=== PATIENT | female | born 1965 | race Caucasian/White ===

== ENCOUNTER → 2021-06-23 12:43 | Outpatient (BNVA) | payer MEDICARE, SELFPAY | PROVIDERS: Family Provider Family Medicine; PCP Family Medicine; Visit Provider Emergency Medicine | DX: M25.532 Pain in left wrist (principal); M25.562 Pain in left knee; W19.XXXA Unspecified fall, initial encounter; M79.642 Pain in left hand; M25.572 Pain in left ankle and joints of left foot; M19.042 Primary osteoarthritis, left hand | CPT/HCPCS: 73110; 73130; 73562; 73610 ==

== ENCOUNTER → 2022-02-18 12:41 | Outpatient (BNVA) | payer MEDICARE, SELFPAY | PROVIDERS: Family Provider Family Medicine; Visit Provider Nurse Practitioner Family | DX: M17.11 Unilateral primary osteoarthritis, right knee (principal); M25.561 Pain in right knee | CPT/HCPCS: 73562 ==

== ENCOUNTER 2022-04-24 11:42 | Emergency (ER) | payer MEDICARE, SELFPAY ==
[2022-04-24] VITALS (80 sets, daily range): BP systolic 124–167; BP diastolic 72–97; PULSE 70–110; RESP 7–39; TEMP 36.8; O2SAT 85–100; BMI 33.6
--- NOTE | 2022-04-24 11:44 | XRR_ITS ---
PROCEDURE INFORMATION: Exam: XR Chest Exam date and time: 04/24/2022 12:02 PM Age: 56 years old Clinical indication: Pain; Chest pressure; Additional info: Chest pain TECHNIQUE: Imaging protocol: Radiologic exam of the chest. Views: 1 view. COMPARISON: CR XR chest 1V [id number] 05/25/2018 11:09 AM FINDINGS: Lungs: Unremarkable. No consolidation. Pleural spaces: Unremarkable. No pleural effusion. No pneumothorax. Heart/Mediastinum: Unremarkable. No cardiomegaly. Bones/joints: Unremarkable. XR/XR chest 1V portable [id number] IMPRESSION: No acute findings.
--- NOTE | 2022-04-24 12:21 | ED_ITS ---
HPI - General Adult General: Chief complaint: Chest Pain Stated complaint: chest pain Time Seen by Provider: 04/24/22 11:44 History of Present Illness: Patient is a 56-year-old female with a history of diabetes, smoking, prior meth use who presents to the emergency room for complaints of chest pressure, diaphoresis, nausea and vomiting for the last 3 days. Patient has been at she has been having chest pain on and off for the last 2 weeks but the last few days the pain has significantly worse. Patient reports chest pressure lasting for few minutes at a time while at rest. Each episode associate with clamminess and sweating with nausea and vomiting. Patient also reports shortness of breath with each episode of chest pressure. Patient denies any stabbing chest pain with radiation to the back, pleuritic chest pain, recent immobilization, surgery. Patient has any cough, runny nose sore throat, abdominal pain, nausea/vomiting point diarrhea melena/hematochezia. No other focal complaints at this time. Of note, patient has had a stress test 6 years ago with finding of lesions in the disease. Patient has not followed up with cardiology at that time. Earlier today, patient called EMS. Patient received aspirin 325mg, multiple doses of nitro and opiate medication with improvement in chest pain. Onset:acutely 3 days ago Duration:3 days Location:home Severity:moderate Associated symptoms: Reports chest pain (+chest pressure), dyspnea, nausea and vomiting; Deny rash or palpitations Review of Systems Const: Reports: other (+diaphoresis); Denies: fever(s) or chills Eyes: Denies: change in vision ENMT: Denies: mouth pain Card: Reports: chest pain (+chest pressure); Denies: palpitations Resp: Reports: dyspnea; Denies: non-productive cough GI: Reports: nausea and vomiting; Denies: abdominal pain or diarrhea : Denies: dysuria Musc: Denies: extremity pain Skin/Breast: Denies: rash or new lesions Neuro: Denies: weakness in extremities Psych: Reports: other (Normal mood) Alexandre/Lymph: Denies: easy bruising PFSH ED PFSH: Medical History Diabetes Smoking Social History Smoking and tobacco status: current every day smoker Alcohol intake: never Substance/Drug Use: former Physical Exam Const: COMMON NORMALS: alert HENMT: COMMON NORMALS: atraumatic HEAD & SCALP: atraumatic MOUTH: moist mucous membranes not abnormal Eye: COMMON NORMALS: EOMs intact bilaterally and conjunctivae normal CONJUNCTIVA: Yes conjunctivae normal Neck/C-Spine: COMMON NORMALS: full ROM and supple Resp: COMMON NORMALS: normal respiratory effort and clear to auscultation bilaterally AUSCULTATION: clear to auscultation bilaterally Cardio: COMMON NORMALS: regular rate RATE: regular rate OTHER: 2+ radial pulses b/l GI: COMMON NORMALS: Soft to palpation and non-tender PALPATION: Yes Soft to palpation OTHER: No focal TTP. NO guarding rebound, guarding, rigidity. No CVA tenderness to percussion. Neg Moore/Neg McBurney's point tenderness, no suprabupic tenderness to palpation. Extremity: COMMON NORMALS: full ROM Neuro: SENSORIUM/ORIENTATION: Yes alert MOTOR EXAM: No Abnormal motor strength present and Other motor observations present (no focal motor deficits) Psych: COMMON NORMALS: speech normal SPEECH: Yes normal speech MOOD & AFFECT: Yes euthymic mood Course Vital Signs: Vital signs: Vital Signs Temperature 98.2 F 04/24/22 11:43 Pulse Rate 98 04/24/22 18:14 Respiratory Rate 20 H 04/24/22 18:14 Blood Pressure 124/79 04/24/22 18:14 Pulse Oximetry 96 04/24/22 18:14 [facility] - General Adult Medical Decision Making Patient is a 56-year-old female with a history of diabetes, smoking, prior meth use who presents to the emergency room for complaints of chest pressure, diaphoresis nausea and vomiting for the last 3 days. On exam, patient is hemodynamically stable with 2+ radial pulses bilaterally. Rest of exam unremarkable. Initial EKG not showing signs of ST elevation. No signs of is chemia. Troponin x 1 wnl. Patient is currently chest pain free. Disposition: observation Lab Data : 04/24/22 12:10 04/24/22 12:10 Radiology Impressions Chest X-Ray 04/24/22 11:44 IMPRESSION: No acute findings. Laboratory Results WBC 4.5 10^3/uL (4.0-10.0) 04/24/22 12:10 RBC 4.47 10^6/uL (4.1-5.3) 04/24/22 12:10 Hgb 13.4 g/dL (11.5-15.3) 04/24/22 12:10 Hct 38.7 % (37.0-47.0) 04/24/22 12:10 MCV 86.6 fl (81-99) 04/24/22 12:10 MCH 30.0 pg (28.0-34.0) 04/24/22 12:10 MCHC 34.6 g/dL (30.0-36.0) 04/24/22 12:10 RDW 14.3 % (12.1-15.1) 04/24/22 12:10 Plt Count 139 10^3/cmm (130-400) 04/24/22 12:10 MPV 10.2 fL (7.4-10.4) 04/24/22 12:10 Neut % (Auto) 61.7 % 04/24/22 12:10 Lymph % (Auto) 32.4 % 04/24/22 12:10 [place] % (Auto) 4.4 % 04/24/22 12:10 Eos % (Auto) 0.7 % 04/24/22 12:10 Baso % (Auto) 0.4 % 04/24/22 12:10 Neut # (Auto) 2.78 10^3/uL (1.8-7.7) 04/24/22 12:10 Lymph # (Auto) 1.5 10^3/uL (0.8-4.8) 04/24/22 12:10 [place] # (Auto) 0.2 10^3/uL (0.2-0.9) 04/24/22 12:10 Eos # (Auto) 0.0 10^3/uL (0.0-0.8) 04/24/22 12:10 Baso # (Auto) 0.0 10^3/uL (0.0-0.1) 04/24/22 12:10 Nucleated RBC % (auto) 0 % 04/24/22 12:10 Nucleated RBCs # 0.0 /100WBC 04/24/22 12:10 Sodium 129 mmol/L (136-145) L 04/24/22 12:10 Potassium 4.0 mmol/L (3.5-5.1) 04/24/22 12:10 Chloride 95 mmol/L (98-107) L 04/24/22 12:10 Carbon Dioxide 27 mmol/L (22-29) 04/24/22 12:10 Anion Gap 11.0 (5-19) 04/24/22 12:10 BUN 12 mg/dL (6-20) 04/24/22 12:10 Creatinine 0.4 mg/dL (0.5-0.9) L 04/24/22 12:10 GFR Calculation 163.9 mL/min (90-130) H 04/24/22 12:10 Glucose 366 mg/dL (65-115) H 04/24/22 12:10 Estimat Average Glucose 223 04/24/22 12:10 Hemoglobin A1c 9.4 % (4.0-6.0) H 04/24/22 12:10 Calculated Osmolality 283 mOsm/kg (285-295) L 04/24/22 12:10 Calcium 9.0 mg/dL (8.5-10.5) 04/24/22 12:10 Troponin T Baseline 8 ng/L (0-10) 04/24/22 12:10 Troponin T 120 Minute 7.67 ng/L (0-10) 04/24/22 15:37 Delta Troponin T -0.33 ABS# (0-10) L 04/24/22 15:37 NT-Pro-B Natriuret Pep 27 pg/mL (0-125) 04/24/22 12:10 Triglycerides 195 mg/dL (0-150) H 04/24/22 12:10 Cholesterol 174 mg/dL (0-200) 04/24/22 12:10 LDL Cholesterol, Calc 98 mg/dL (50-129) 04/24/22 12:10 HDL Cholesterol 37 mg/dL (60-100) L 04/24/22 12:10 LDL/HDL Ratio 2.65 RATIO (0.00-3.22) 04/24/22 12:10 Cholesterol/HDL Ratio 4.70 mg/dL (0.0-4.40) H 04/24/22 12:10 TSH 0.43 uIU/mL (0.27-4.20) 04/24/22 12:10 Urine Opiates Screen Positive ng/mL (Negative) H 04/24/22 17:24 Ur Barbiturates Screen Negative ng/mL (Negative) 04/24/22 17:24 Ur Phencyclidine Scrn Negative ng/mL (Negative) 04/24/22 17:24 Ur Amphetamines Screen Positive ng/mL (Negative) H 04/24/22 17:24 U Benzodiazepines Scrn Negative ng/mL (Negative) 04/24/22 17:24 Urine Cocaine Screen Negative ng/mL (Negative) 04/24/22 17:24 U Marijuana (THC) Screen Negative ng/mL (Negative) 04/24/22 17:24 Imaging Data Other Imaging: Radiologist's impression: [email or web address] [address] XRay Report Signed Patient: Coni Lovett Unit #: [id number] : 1965 Age/Sex: 56 / F ADM Date: 04/24/22 Loc: ER Room/Bed: Attending Dr: Ordering Provider/Ordering MD: Ericka Garza MD Date of Service: 04/24/22 Procedure(s): XR chest 1V portable [id number] Accession Number(s): [id number] Report Number: [id number] PROCEDURE INFORMATION: Exam: XR Chest Exam date and time: 04/24/2022 12:02 PM Age: 56 years old Clinical indication: Pain; Chest pressure; Additional info: Chest pain TECHNIQUE: Imaging protocol: Radiologic exam of the chest. Views: 1 view. COMPARISON: CR XR chest 1V [id number] 05/25/2018 11:09 AM FINDINGS: Lungs: Unremarkable. No consolidation. Pleural spaces: Unremarkable. No pleural effusion. No pneumothorax. Heart/Mediastinum: Unremarkable. No cardiomegaly. Bones/joints: Unremarkable. XR/XR chest 1V portable [id number] IMPRESSION: No acute findings. ? Dictated By: Titus Husain MD Signed By: Titus Husain MD Signed Date/Time: 04/24/22 1331 DD/ 1202 Discharge Plan Discharge Patient Disposition: Left Against Medical Advice Clinical Impression: Chest pain Condition: Stable Prescriptions: No Action duloxetine 30 mg capsule,delayed release(DR/EC) 30 mg PO DAILY pregabalin 75 mg capsule 75 mg PO TID Lantus Solostar U-100 Insulin 100 unit/mL (3 mL) insulin pen 50 unit SUBCUT BEDTIME Trulicity 0.75 mg/0.5 mL Pen Injector 0.75 mg SUBCUT Q7D Referrals: Dayna Sanchez DO [Primary Care Provider] - Coding Level of Care Code ED Mixing Plant Operator for Chg Fwd Exam Comprehensive
[2022-04-24 12:31] LABS: Basophils % 0.4 %; Eosinophils % 0.7 %; Hematocrit 38.7 % (37.0-47.0); Hemoglobin 13.4 g/dL (11.5-15.3); Lymphocytes # 1.5 10^3/uL (0.8-4.8); Lymphocytes % 32.4 %; Mean Corpuscular HGB Conc 34.6 g/dL (30.0-36.0); Mean Corpuscular Volume 86.6 fl (81-99); Mean Platelet Volume 10.2 fL (7.4-10.4); Monocytes # 0.2 10^3/uL (0.2-0.9); Monocytes % 4.4 %; Neutrophils # 2.78 10^3/uL (1.8-7.7); Neutrophils % 61.7 %; Nucleated Red Blood Cells % 0 %; Platelet Count 139 10^3/cmm (130-400); Red Blood Count 4.47 10^6/uL (4.1-5.3); Red Cell Distribution Width 14.3 % (12.1-15.1); White Blood Count 4.5 10^3/uL (4.0-10.0)
--- NOTE | 2022-04-24 12:33 | PC.NURSE ---
offered morphine for pt, pt declined for now.
--- NOTE | 2022-04-24 12:34 | PC.NURSE ---
ASA not given due to pt received 324mg ASA en route by EMS. physician order to not give med.
[2022-04-24 12:56] LABS: Blood Urea Nitrogen 12 mg/dL (6-20); Carbon Dioxide 27 mmol/L (22-29); Chloride 95 mmol/L (98-107); Creatinine Clr Calc Pharmacy 159.5191; Glomerular Filtration Rate 163.9 mL/min (90-130); Glucose 366 mg/dL (65-115); Osmolality Calculated 283 mOsm/kg (285-295); Sodium 129 mmol/L (136-145)
[2022-04-24 12:58] LABS: Troponin(5th) Baseline 8 ng/L (0-10)
[2022-04-24] MEDS: morphine 4 mg/mL SDV 1 mL IVP (13:02)
--- NOTE | 2022-04-24 13:45 | ECG_ITS ---
[facility] Test Date: 2022-04-24 Pat Name: Coni Lovett Department: Room: Gender: Female Field Technical Support Consultant: : 1965 Requested By: Ericka Garza Order Number: [id number] Lisa MD: Lux Boudreaux M.D. Measurements Intervals [place] Rate: 78 P: 29 AL: 137 QRS: 34 QRSD: 85 T: 25 QT: 367 QTc: 419 Interpretive Statements SINUS RHYTHM WITH OCCASIONAL SUPRAVENTRICULAR PREMATURE COMPLEXES Compared to ECG 04/24/2022 11:48:58 No significant changes Electronically Signed On 04-25-2022 22:10:51 CDT by Lux Boudreaux M.D. [email or web address].[employer]/store/OM/[id number]
--- NOTE | 2022-04-24 15:19 | PM.HP ---
Providers/Chief Complaint Primary Care Provider: Dayna Sanchez DO Chief Complaint: chest pain History of Present Illness Coni Lovett is a 56 year old female with past medical history of methamphetamine abuse, positive stress test 5 years ago and subsequent cath with apparently a diseased vessel but not enough to be intervented upon and lost to follow-up, diabetes mellitus complicated by peripheral neuropathy presented to the ER today for complaint of chest pain. She states she has been okay for the last couple of years however presented to the ER with complaints of chest pain for been going on for the last 2 weeks in the last few days has gotten significantly worse. She does report chest pressure lasting for few minutes even at rest. She gets diaphoretic and has nausea vomiting. She says for the last 3 days this has been going on. When she does get chest pressure she gets diaphoretic along with it. She also gets shortness of breath. Pain does not radiate anywhere. It is not reproducible to palpation. Denies runny nose, sore throat, abdominal pain, nausea vomiting diarrhea at this time. She states the stress that she had years ago did have some kind of a lesion and she was asked to follow-up with cardiology but she did not. In route to the ER she was given aspirin 325x1 and 4 doses of nitro and along with morphine that did improve her chest pain. At this time she is complaining of chest pressure. Will be applying nitro paste. EKG does not show any acute ST elevations. No other ischemic changes on EKG. First troponin 8. Sodium 129, chloride 95, creatinine 0.4. Glucose 366. Patient takes 50 units of Lantus at bedtime at home. Medications/Allergies Home Medications Medication Instructions Recorded Confirmed Last Taken Type dulaglutide 0.75 mg/0.5 mL 0.75 mg SUBCUT Q7D 04/24/22 04/24/22 04/17/22 History subcutaneous pen injector (Trulicity) duloxetine 30 mg capsule,delayed 30 mg PO DAILY 04/24/22 04/24/22 04/23/22 History release insulin glargine 100 unit/mL (3 50 unit SUBCUT BEDTIME 04/24/22 04/24/22 04/23/22 History mL) subcutaneous pen (Lantus Solostar U-100 Insulin) pregabalin 75 mg capsule 75 mg PO TID 04/24/22 04/24/2204/23/22 History Allergies Allergy/AdvReac Type Severity Reaction Status Date / Time erythromycin base Allergy unknown Verified 06/23/21 12:33 rosalie Allergy unknown Verified 06/23/21 12:33 papaya Allergy unknown Verified 06/23/21 12:33 watermelon Allergy unknown Verified 06/23/21 12:33 PFSH Acute PFSH: Medical History Diabetes Smoking Social History Smoking and tobacco status: current every day smoker Alcohol intake: never Substance/Drug Use: former Vitals/I&O/Wt Last Vital Signs Temp 98.2 F 04/24/22 11:43 Pulse 74 04/24/22 13:55 Resp 13 04/24/22 13:55 BP 152/84 04/24/22 13:55 Pulse Ox 97 04/24/22 13:55 Weight last 48 hrs Weight 86.183 kg Physical Exam Narrative: General: Alert oriented x3, patient seen sitting up in bed, no acute distress HEENT: Normocephalic, atraumatic, EOMI, breathing normally Cardio: Regular rate rhythm, normal S1-S2, no murmurs Respiratory: Good bilateral air entry, no wheezes no rhonchi appreciated GI: Abdomen soft, nontender, nondistended, bowel sounds + Behavior: Appropriate and cooperative Extremities: Pulses 2+, no edema, no cyanosis Data : 04/24/22 12:10 04/24/22 12:10 A&P Assessment and plan (1) Chest pain: (2) Diabetes: (3) Nicotine dependence: (4) Amphetamine abuse in remission: (5) Nicotine dependence: Plan #Typical Chest pain, rule out ACS #Former Meth user, but no longer #Smoker #Positive stress test 5 years prior with angiogram showing a diseased vessel but not intervened upon. In [place], does not remember name of hospital. #DM complicated by peripheral neuropathy #Hyponatremia - FIrst trop 8. - Start aspirin, plavix, lopressor, atorvastatin - Will trend troponins. Will cover with therapeutic lovenox - Tentitavely plan for Stress test Tuesday AM. If chest pain recurs, may have to consider cardiology consult. - Check echo - Sliding scale insulin, lantus 50 units bedside - Continue duloxetine - COntinue lyrica - Check urine drug screen - CXR unremarkable - Check urine sodium, urine and serum osm - Apply nitro paste - Await 2nd and third trop - Keep patient NPO for now. Full Code DVT PPX: on lovenox Attestations Medical Necessity Statement*: Observation for chest pain. Coding Level of Care Code Acute Vice [employer] Police Officer for Chelseyg Shimond Diagnoses Chest pain R07.9 Diabetes E11.9 Nicotine dependence F17.200 Amphetamine abuse in remission F15.11 Nicotine dependence F17.200
--- NOTE | 2022-04-24 15:34 | USCV_ITS ---
Coni Lovett Age: 56 Gender: F : 1965 Exam Date: 04/24/2022 15:52 Ordering Phys: Mona Welsh MD Technologist: Exam Location: [facility] [place] Indication: chest pain BP: 156 / 88 HR: 83 Rhythm: Sinus Technical Quality: Adequate MEASUREMENTS (Male / Female) Normal Values 2D ECHO LV Diastolic Diameter PLAX 4.2 cm 4.2 - 5.9 / 3.9 - 5.3 cm LV Systolic Diameter PLAX 2.5 cm IVS Diastolic Thickness 1.2 cm 0.6 - 1.0 / 0.6 - 0.9 cm IVS Systolic Thickness 1.9 cm LVPW Diastolic Thickness 1.2 cm 0.6 - 1.0 / 0.6 - 0.9 cm LVPW Systolic Thickness 1.3 cm LVOT Diameter 2.1 cm LV Ejection Fraction 2D Teich 63.2 % LV Ejection Fraction MOD 2C 71.1 % LV Ejection Fraction 2C AL 71.2 % LA Diameter 3.6 cm IVC Diameter 1.0 cm M-MODE Aortic Annulus Diameter 2.6 cm LA Ao Ratio MM 1.3 MV E Point Septal Separation 1.2 cm DOPPLER AV Peak Velocity 146.0 cm/s LVOT Peak Velocity 98.0 cm/s AV Area Cont Eq vti 2.9 cm squared AV Area Cont Eq pk 2.4 cm squared MV Area PHT 5.0 cm squared Mitral E to A Ratio 0.8 MV E' Velocity 52.0 cm/s Mitral E to MV E' Ratio 12.4 Mitral E to LV E' Lateral Ratio 9.3 Mitral E to LV E' Septal Ratio 18.5 TR Peak Velocity 178.7 cm/s TR Peak Gradient 12.8 mmHg TV Peak E Velocity 80.0 cm/s Right Atrial Pressure 3.0 mmHg Pulmonary Artery Systolic Pressu 15.8 mmHg PV Peak Velocity 88.0 cm/s RV Acceleration Time 0.2 s FINDINGS Left Ventricle Left ventricle is normal in size. LV systolic function is normal with EF of 55 to 60%. No regional wall motion abnormalities are seen. Grade 1 diastolic dysfunction Right Ventricle Normal in size and function Right Atrium Normal in size Left Atrium Normal in size Mitral Valve Moderate to severe mitral annular calcification is seen. Mild mitral regurgitation. Aortic Valve Aortic valve is thickened and calcified. No significant stenosis or regurgitation Tricuspid Valve Trace tricuspid regurgitation. Insufficient TR jet to calculate RVSP Pulmonic Valve Not well visualized Pericardium Normal Aorta Normal in size IVC Appears to be normal CONCLUSIONS LV systolic function normal with EF of 55 to 60%. Grade 1 diastolic dysfunction Moderate to severe mitral annular calcification. Mild mitral regurgitation Aortic valve is thickened and calcified Trace tricuspid regurgitation Compared to prior echocardiogram from 2016, no significant changes are seen. Lux Boudreaux MD (Electronically Signed) Final Date: 24 April 2022 19:37 S
[2022-04-24] MEDS: clopidogrel 300 mg Tablet PO (16:05)
[2022-04-24] MEDS: enoxaparin 80 mg/0.8 mL Syringe SUBCUT (16:06)
[2022-04-24 16:08] LABS: Troponin 5 2HR 7.67 ng/L (0-10)
[2022-04-24 16:15] LABS: Cholesterol 174 mg/dL (0-200); HDL Cholesterol 37 mg/dL (60-100); LDL Cholesterol Calculated 98 mg/dL (50-129); LDL HDL Ratio 2.65 RATIO (0.00-3.22); NT Pro B Type Natriuretic Pept 27 pg/mL (0-125); Thyroid Stimulating Hormone 0.43 uIU/mL (0.27-4.20); Triglycerides 195 mg/dL (0-150)
[2022-04-24 16:16] LABS: Estmated Average Glucose 223; Hemoglobin A1C 9.4 % (4.0-6.0)
[2022-04-24] MEDS: sodium chloride 0.9% 1,000 ML 75 ML IV (16:23)
[2022-04-24] MEDS: nitroglycerin 1 gm/inch oint Pkt 0.5 INCH TOPICAL (16:23)
[2022-04-24 16:45] LABS: Troponin 5 2HR Delta -0.33 ABS# (0-10)
--- NOTE | 2022-04-24 17:24 | PC.NURSE ---
pt was educated on importance of not eating or drinking anything until okayed by physician. pt's friend had brought her a cinnamon roll without staff knowledge. NPO ordered by hospitalist. pt educated on NPO status. later, nurse entered room to find pt eating a sandwich and cheez its. educated pt again on NPO status. notified by other staff that pt now wants to leave AMA so that she can go home and eat and be with her dogs. Dr. Garza notified who requests nurse to call Dr. Welsh, hospitalist. Dr. Welsh called and notified of pt request.
--- NOTE | 2022-04-24 17:45 | ECG_ITS ---
[facility] Test Date: 2022-04-24 Pat Name: Coni Lovett Department: Room: Gender: Female Sap Business Objects Developer: : 1965 Requested By: Ericka Garza Order Number: [id number] Lisa MD: Lux Boudreaux M.D. Measurements Intervals [place] Rate: 86 P: 33 [place]: 139 QRS: 23 QRSD: 81 T: 28 QT: 359 QTc: 430 Interpretive Statements SINUS RHYTHM POSSIBLE LEFT ATRIAL ENLARGEMENT [-0.1mV P-WAVE IN V1/V2] Compared to ECG 01/15/2017 02:30:21 Sinus tachycardia no longer present Electronically Signed On 04-25-2022 22:10:55 CDT by Lux Boudreaux M.D. [email or web address] regional medical centerSpecial Network Servicespremier health [facility].ARCsys/store/OM/[id number]
--- NOTE | 2022-04-24 17:47 | PC.NURSE ---
spoke with pt regarding benefits of staying and risks of refusal of services. pt verbalized understanding and states she has already called her ride. pt agreeable for repeat troponin to be drawn but will leave when her ride gets here regardless if the results are back or not. Dr. Welsh called and notified. Pt to sign out against medical advice.
[2022-04-24 18:08] LABS: Amphetamines Screen Urine Positive (Negative); Barbiturates Screen Urine Negative (Negative); Benzodiazepines Screen Urine Negative (Negative); Cocaine Screen Urine Negative (Negative); Opiate Screen Urine Positive (Negative); PCP Screen Urine Negative (Negative); THC Screen Urine Negative (Negative)
--- NOTE | 2022-04-24 18:12 | PC.NURSE ---
spoke with pt again, pt still wanting to leave against medical advice. risks and benefits discussed with pt who verbalized understanding.
[2022-04-24 18:25] LABS: Troponin 5 6HR 7.67 ng/L (0-10)
[2022-04-24 18:38] LABS: Urine Random Sodium 61 mmol/L
[2022-04-24 18:59] LABS: Troponin 5 6HR Delta -0.33 ng/L (0-12)
--- NOTE | 2022-04-24 20:22 | P.DS_ITS ---
Discharge Providers Date of Discharge: April 24, 2022 Primary Care Provider: Dayna Sanchez DO Diagnoses at Discharge Discharge Diagnosis (1) Chest pain: Status: Acute (2) Diabetes: Status: Acute (3) Nicotine dependence: Status: Acute (4) Amphetamine abuse in remission: Status: Acute (5) Nicotine dependence: Status: Acute Reason for Visit Reason for Visit: chest pain Brief History: Left AMA Hospital Course Hospital Course Left AMA Physical Exam Narrative: Left AMA Discharge Data Studies Completed and Pending Completed Studies During Hospitalization Category Date Time Status XR chest 1V portable [id number] Stat Exams 04/24/22 11:44 Completed CV. echo complete* [id number] Stat Ultrasound 04/24/22 15:34 Completed Pending at discharge Category Date Time Status Osmolality Serum Stat Lab 04/24/22 15:34 Received Osmolality Urine Stat Lab 04/24/22 17:24 Received Radiology Impressions Chest X-Ray 04/24/22 11:44 IMPRESSION: No acute findings. Laboratory Results WBC 4.5 10^3/uL (4.0-10.0) 04/24/22 12:10 RBC 4.47 10^6/uL (4.1-5.3) 04/24/22 12:10 Hgb 13.4 g/dL (11.5-15.3) 04/24/22 12:10 Hct 38.7 % (37.0-47.0) 04/24/22 12:10 MCV 86.6 fl (81-99) 04/24/22 12:10 MCH 30.0 pg (28.0-34.0) 04/24/22 12:10 MCHC 34.6 g/dL (30.0-36.0) 04/24/22 12:10 RDW 14.3 % (12.1-15.1) 04/24/22 12:10 Plt Count 139 10^3/cmm (130-400) 04/24/22 12:10 MPV 10.2 fL (7.4-10.4) 04/24/22 12:10 Neut % (Auto) 61.7 % 04/24/22 12:10 Lymph % (Auto) 32.4 % 04/24/22 12:10 [place] % (Auto) 4.4 % 04/24/22 12:10 Eos % (Auto) 0.7 % 04/24/22 12:10 Baso % (Auto) 0.4 % 04/24/22 12:10 Neut # (Auto) 2.78 10^3/uL (1.8-7.7) 04/24/22 12:10 Lymph # (Auto) 1.5 10^3/uL (0.8-4.8) 04/24/22 12:10 [place] # (Auto) 0.2 10^3/uL (0.2-0.9) 04/24/22 12:10 Eos # (Auto) 0.0 10^3/uL (0.0-0.8) 04/24/22 12:10 Baso # (Auto) 0.0 10^3/uL (0.0-0.1) 04/24/22 12:10 Nucleated RBC % (auto) 0 % 04/24/22 12:10 Nucleated RBCs # 0.0 /100WBC 04/24/22 12:10 Sodium 129 mmol/L (136-145) L 04/24/22 12:10 Potassium 4.0 mmol/L (3.5-5.1) 04/24/22 12:10 Chloride 95 mmol/L (98-107) L 04/24/22 12:10 Carbon Dioxide 27 mmol/L (22-29) 04/24/22 12:10 Anion Gap 11.0 (5-19) 04/24/22 12:10 BUN 12 mg/dL (6-20) 04/24/22 12:10 Creatinine 0.4 mg/dL (0.5-0.9) L 04/24/22 12:10 GFR Calculation 163.9 mL/min (90-130) H 04/24/22 12:10 Glucose 366 mg/dL (65-115) H 04/24/22 12:10 Estimat Average Glucose 223 04/24/22 12:10 Hemoglobin A1c 9.4 % (4.0-6.0) H 04/24/22 12:10 Calculated Osmolality 283 mOsm/kg (285-295) L 04/24/22 12:10 Calcium 9.0 mg/dL (8.5-10.5) 04/24/22 12:10 Troponin T Baseline 8 ng/L (0-10) 04/24/22 12:10 Troponin T 120 Minute 7.67 ng/L (0-10) 04/24/22 15:37 Delta Troponin T -0.33 ABS# (0-10) L 04/24/22 15:37 Troponin T Hi Sens 6Hr 7.67 ng/L (0-10) 04/24/22 17:46 Troponin T Hi Sens 6Hr Delta -0.33 ng/L (0-12) L 04/24/22 17:46 NT-Pro-B Natriuret Pep 27 pg/mL (0-125) 04/24/22 12:10 Triglycerides 195 mg/dL (0-150) H 04/24/22 12:10 Cholesterol 174 mg/dL (0-200) 04/24/22 12:10 LDL Cholesterol, Calc 98 mg/dL (50-129) 04/24/22 12:10 HDL Cholesterol 37 mg/dL (60-100) L 04/24/22 12:10 LDL/HDL Ratio 2.65 RATIO (0.00-3.22) 04/24/22 12:10 Cholesterol/HDL Ratio 4.70 mg/dL (0.0-4.40) H 04/24/22 12:10 TSH 0.43 uIU/mL (0.27-4.20) 04/24/22 12:10 Ur Random Sodium 61 mmol/L 04/24/22 17:24 Urine Opiates Screen Positive ng/mL (Negative) H 04/24/22 17:24 Ur Barbiturates Screen Negative ng/mL (Negative) 04/24/22 17:24 Ur Phencyclidine Scrn Negative ng/mL (Negative) 04/24/22 17:24 Ur Amphetamines Screen Positive ng/mL (Negative) H 04/24/22 17:24 U Benzodiazepines Scrn Negative ng/mL (Negative) 04/24/22 17:24 Urine Cocaine Screen Negative ng/mL (Negative) 04/24/22 17:24 U Marijuana (THC) Screen Negative ng/mL (Negative) 04/24/22 17:24 Vitals Last Vital Signs Temp 98.2 F 04/24/22 11:43 Pulse 98 04/24/22 18:14 Resp 20 H 04/24/22 18:14 BP 124/79 04/24/22 18:15 Pulse Ox 96 04/24/22 18:14 Discharge Plan Discharge Patient Disposition: Left Against Medical Advice Clinical Impression: Chest pain Condition: Stable Prescriptions: No Action duloxetine 30 mg capsule,delayed release(DR/EC) 30 mg PO DAILY pregabalin 75 mg capsule 75 mg PO TID Lantus Solostar U-100 Insulin 100 unit/mL (3 mL) insulin pen 50 unit SUBCUT BEDTIME Trulicity 0.75 mg/0.5 mL Pen Injector 0.75 mg SUBCUT Q7D Referrals: Dayna Sanchez DO [Primary Care Provider] - Discharge Attestations Time Spent in Discharge Care*: other Quality Metrics Clinical Quality Measures [ No reported AMI, CVA or VTE this stay] Coding Level of Care Code Acute Chg FW DC note Diagnoses Chest pain R07.9 Diabetes E11.9 Nicotine dependence F17.200 Amphetamine abuse in remission F15.11 Nicotine dependence F17.200
[2022-04-26 16:58] LABS: Osmolality Serum 300 mOsm/kg (278-305)
[2022-04-26 16:58] LABS: Osmolality Urine 942 mOsm/kg (50-1200)
== END 2022-04-24 18:15 | disposition left against medical advice (07) ==
PROVIDERS: Internal Medicine; Emergency Provider Emergency Medicine; PCP Family Medicine
DX: R07.9 Chest pain, unspecified (principal); Z53.21 Procedure and treatment not carried out due to patient leaving prior to being seen by health care provider; E11.9 Type 2 diabetes mellitus without complications; F17.210 Nicotine dependence, cigarettes, uncomplicated; Z79.4 Long term (current) use of insulin
CPT/HCPCS: 71045; 80048; 80061; 80306; 83036; 83880; 83930; 83935; 84300; 84443; 84484; 85025; 93005; 93306; 96361; 96372; 96374; 99285; J1650; J2270; J7030

== ENCOUNTER → 2022-12-20 11:02 | Outpatient (BNVA) | payer MEDICARE, SELFPAY | PROVIDERS: PCP Family Medicine; Visit Provider Nurse Practitioner Family | DX: J18.9 Pneumonia, unspecified organism (principal) | CPT/HCPCS: 71046 ==

== ENCOUNTER → 2023-01-14 09:48 | Outpatient (BNVA) | payer MEDICARE, SELFPAY | PROVIDERS: Visit Provider Emergency Medicine | DX: R05.9 Cough, unspecified (principal); R06.02 Shortness of breath; R19.7 Diarrhea, unspecified; F17.200 Nicotine dependence, unspecified, uncomplicated | CPT/HCPCS: 71046; 80053; 83880; 84443; 85025 ==

== ENCOUNTER 2023-01-27 14:28 | Outpatient (CLI) | payer MEDICARE, SELFPAY ==
[2023-01-27] MEDS: iohexol 350 mg/mL 500 mL Btl (per mL) IV (14:54)
--- NOTE | 2023-01-27 15:00 | CT_ITS ---
WS: [id number] CT CHEST ANGIOGRAPHY WITH REFORMATS HISTORY: I25.2 - Old myocardial infarction TECHNIQUE: Contiguous axial images are obtained through the chest during arterial injection of intrav enous contrast. Images are reconstructed to evaluate the pulmonary arteries. MIP imaging also reviewe d. All CT scans at [facility] use at least one of these dose optimization techniques: automat ed exposure control; mA and/or kV adjustment per patient size (includes targeted exams where dose is matched to clinical indication); or iterative reconstruction. CONTRAST: Omnipaque 350; 100 mL IV. DLP: 385.42 mGy.cm COMPARISON: Chest radiograph 01/14/2023 Very good opacification of the pulmonary arteries. There are no filling defects. Mild atherosclerosis aorta. No aneurysm. No RIGHT heart strain. Heart is normal size. No pericardial or pleural effusion. No adenopathy. Lungs are clear. No pneumonia. Mildly nodular thyroid is slightly substernal. Small hiatal hernia. The spleen is enlarged and incompletely included on this examination. Spleen measures greater than 13 cm in length. Spleen was also enlarged over 14 cm on the study from 03/26/2016. No adrenal mass. Mild thoracic spondylosis. CT/CT angio chest PE protcl [id number] IMPRESSION: 1. Normal pulmonary artery. No emboli. 2. No pneumonia. 3. No RIGHT heart strain. 4. Spleen is enlarged. Incompletely included on this examination is greater th an 13 cm.
== END 2023-01-27 14:29 | disposition home or self-care (01) ==
LOC: RAD 14:37
PROVIDERS: PCP Emergency Medicine; Visit Provider Emergency Medicine
DX: I25.2 Old myocardial infarction (principal); F17.200 Nicotine dependence, unspecified, uncomplicated; R05.9 Cough, unspecified; R06.02 Shortness of breath; R16.1 Splenomegaly, not elsewhere classified
CPT/HCPCS: 71275; 80053; 83880; 84443; 85025; Q9967

== ENCOUNTER → 2023-03-07 09:47 | Outpatient (BNVA) | payer MEDICARE, MEDICAID, SELFPAY | PROVIDERS: Visit Provider Nurse Practitioner Family | DX: M25.561 Pain in right knee (principal); M17.11 Unilateral primary osteoarthritis, right knee; M79.604 Pain in right leg; M79.671 Pain in right foot; W19.XXXA Unspecified fall, initial encounter | CPT/HCPCS: 73562; 73590; 73630 ==

== ENCOUNTER → 2023-05-17 12:59 | Outpatient (BNVA) | payer MEDICARE, MEDICAID, SELFPAY | PROVIDERS: Visit Provider Physician Assistant | DX: M25.561 Pain in right knee (principal); M23.91 Unspecified internal derangement of right knee; Z46.89 Encounter for fitting and adjustment of other specified devices; M17.11 Unilateral primary osteoarthritis, right knee | CPT/HCPCS: 20610; 73562; 97760; 99203; J3301; L1812 ==

== ENCOUNTER 2023-05-17 14:13 | Outpatient (CLI) | payer MEDICARE, MEDICAID, SELFPAY | END 2023-05-17 14:14 | disposition home or self-care (01) | LOC: SPT 14:13 | PROVIDERS: Visit Provider Physician Assistant | DX: Z46.89 Encounter for fitting and adjustment of other specified devices (principal); M17.11 Unilateral primary osteoarthritis, right knee | CPT/HCPCS: 20610; 97760; 99203; J3301; L1812 ==

== ENCOUNTER → 2023-09-05 15:21 | Outpatient (BNVA) | payer MEDICARE, MEDICAID, SELFPAY | PROVIDERS: Visit Provider Nurse Practitioner Family | DX: I25.2 Old myocardial infarction (principal); R07.89 Other chest pain | CPT/HCPCS: 93005 ==

== ENCOUNTER → 2024-05-22 15:20 | Outpatient (BNVA) | payer MEDICARE, MEDICAID, SELFPAY | PROVIDERS: PCP Nurse Practitioner; Visit Provider Nurse Practitioner | DX: J22 Unspecified acute lower respiratory infection (principal) | CPT/HCPCS: 85025 ==

== ENCOUNTER 2024-05-29 17:25 | Emergency (ER) | payer MEDICARE, MEDICAID, SELFPAY ==
[2024-05-29] VITALS (7 sets, daily range): BP systolic 124–170; BP diastolic 75–104; PULSE 81–89; RESP 18; TEMP 36.8; O2SAT 95–100; BMI 31.6
--- NOTE | 2024-05-29 17:38 | XRR_ITS ---
PROCEDURE INFORMATION: Exam: XR Chest Exam date and time: 05/29/2024 5:49 PM Age: 58 years old Clinical indication: Other: AMS; Additional info: CVA TECHNIQUE: Imaging protocol: Radiologic exam of the chest. Views: 1 view. COMPARISON: CT angio chest PE protcl [id number] 01/27/2023 2:49 PM FINDINGS: Lungs: Unremarkable. No consolidation. Pleural spaces: Unremarkable. No pleural effusion. No pneumothorax. Heart/Mediastinum: Unremarkable. No cardiomegaly. Bones/joints: Unremarkable. XR/XR chest 1V portable [id number] IMPRESSION: No acute findings.
--- NOTE | 2024-05-29 17:38 | CTR_ITS ---
PROCEDURE INFORMATION: Exam: CTA Head With Contrast, Arteriography Exam date and time: 05/29/2024 5:45 PM Age: 58 years old Clinical indication: Stroke-like symptoms; Generalized weakness; Additional info: Left weakness and aphasia TECHNIQUE: Imaging protocol: Computed tomographic angiography of the head with contrast. Exam focused on the arteries. 3D rendering (Not supervised by radiologist): MIP and/or 3D reconstructed images were created by the technologist. Radiation optimization: All CT scans at this facility use at least one of these dose optimization techniques: automated exposure control; mA and/or kV adjustment per patient size (includes targeted exams where dose is matched to clinical indication); or iterative reconstruction. Contrast material: OMNI 350; Contrast volume: 100 ml; Contrast route: INTRAVENOUS (IV); COMPARISON: CT head thrombolytic [id number] 05/29/2024 5:41 PM RADIATION DOSE METRICS: Total DLP (mGy-cm): 437.03 FINDINGS: ANTERIOR CIRCULATION: Right internal carotid artery: Intracranial segment is patent with no significant stenosis. No aneurysm. Right middle cerebral artery: No occlusion or significant stenosis. No aneurysm. Right anterior cerebral artery: No occlusion or significant stenosis. No aneurysm. Left internal carotid artery: Intracranial segment is patent with no significant stenosis. No aneurysm. Left middle cerebral artery: No occlusion or significant stenosis. No aneurysm. Left anterior cerebral artery: No occlusion or significant stenosis. No aneurysm. POSTERIOR CIRCULATION: Right vertebral artery: No occlusion or significant stenosis. No aneurysm. Left vertebral artery: No occlusion or significant stenosis. No aneurysm. Basilar artery: No occlusion or significant stenosis. No aneurysm. Right posterior cerebral artery: No occlusion or significant stenosis. No aneurysm. Left posterior cerebral artery: No occlusion or significant stenosis. No aneurysm. Brain: No definite mass, mass effect, or midline shift. Cerebral ventricles: No ventriculomegaly. Bones/joints: Unremarkable. No acute fracture. Soft tissues: Unremarkable. PROCEDURE INFORMATION: Exam: CTA Neck With Contrast Exam date and time: 05/29/2024 5:45 PM Age: 58 years old Clinical indication: Stroke-like symptoms; Generalized weakness; Additional info: Left weakness and aphasia TECHNIQUE: Imaging protocol: Computed tomographic angiography of the neck with contrast. Exam focused on the cervical segments of the vasculature. 3D rendering (Not supervised by radiologist): MIP and/or 3D reconstructed images were created by the technologist. Radiation optimization: All CT scans at this facility use at least one of these dose optimization techniques: automated exposure control; mA and/or kV adjustment per patient size (includes targeted exams where dose is matched to clinical indication); or iterative reconstruction. Contrast material: OMNI 350; Contrast volume: 100 ml; Contrast route: INTRAVENOUS (IV); COMPARISON: CT angio chest PE protcl [id number] 01/27/2023 2:49 PM RADIATION DOSE METRICS: Total DLP (mGy-cm): 437.03 FINDINGS: Right common carotid artery: No stenosis. No dissection or occlusion. Right internal carotid artery: No stenosis of the extracranial segment. No dissection or occlusion. Right external carotid artery: No occlusion or stenosis of the origin. Left common carotid artery: No stenosis. No dissection or occlusion. Left internal carotid artery: No stenosis of the extracranial segment. No dissection or occlusion. Left external carotid artery: No occlusion or stenosis of the origin. Right vertebral artery: No stenosis. No dissection or occlusion. Left vertebral artery: No stenosis. No dissection or occlusion. Thyroid: Bilobar thyroid nodules measuring up to 2 cm in the left thyroid lobe. Soft tissues: Normal. No significant soft tissue swelling. Bones/joints: No acute fracture. CT/CT angio headneck* [id number] IMPRESSION: No large vessel stenosis or occlusion. IMPRESSION: No stenosis or occlusion. COMMENTS: Consistent with the [employer]'s Incidental Findings Committee white paper (J [employer] Har[employer]ett [employer]iol 2015): In patients aged 35 years and older with an incidental thyroid nodule equal to or greater than 1.[address], MRI or extrathyroidal US, further evaluation with dedicated thyroid US is recommended for patients with normal life expectancy and without comorbidities. For smaller nodules without suspicious features, no further evaluation or follow up is recommended. REFERENCES: NASCET CRITERIA. The degree of stenosis in the cervical segment of the internal carotid artery is based on NASCET criteria. Normal is no stenosis. Mild is less than 50% stenosis. Moderate is 50-69% stenosis. Severe is 70% to 99% stenosis. Total occlusion is no detectable patent lumen.
--- NOTE | 2024-05-29 17:38 | CTR_ITS ---
PROCEDURE INFORMATION: Exam: CT Head Without Contrast Exam date and time: 05/29/2024 5:41 PM Age: 58 years old Clinical indication: Stroke-like symptoms; Generalized weakness; Additional info: Symptoms of acute stroke TECHNIQUE: Imaging protocol: Computed tomography of the head without contrast. Radiation optimization: All CT scans at this facility use at least one of these dose optimization techniques: automated exposure control; mA and/or kV adjustment per patient size (includes targeted exams where dose is matched to clinical indication); or iterative reconstruction. Other technique: STROKE PROTOCOL was implemented. COMPARISON: CT head wo con* [id number] 12/16/2017 4:18 PM RADIATION DOSE METRICS: Total DLP (mGy-cm): 977.98 FINDINGS: Brain: No hemorrhage. No edema. Mild diffuse cerebral atrophy and sequela of chronic small vessel ischemic disease. No mass effect. Cerebral ventricles: No ventriculomegaly. Paranasal sinuses: Visualized sinuses are unremarkable. No fluid levels. Mastoid air cells: Visualized mastoid air cells are well aerated. Bones: Unremarkable. No acute fracture. Soft tissues: Unremarkable. CT/CT head thrombolytic [id number] IMPRESSION: No acute intracranial abnormality. ASSESSMENT: ASPECTS ([place] Stroke Program Early CT Score) is 10.
--- NOTE | 2024-05-29 17:40 | ED_ITS ---
HPI - Neuro Symptoms/Deficit 2 General: Chief Complaint: Chest Pain Stated Complaint: chest pain, headache Time Seen by Provider: 05/29/24 17:29 Source: patient Mode of arrival: ambulatory Limitations: other (Dysarthria) History of Present Illness: This patient was directed to the emergency department from the [facility]. History is somewhat complicated by the patient's expressive dysphagia. She states that she noted the symptoms approximately 7 AM or thereabouts this morning. She also has a history of a previous CVA that required inpatient care at [facility] approximately 4 months ago. Location: speech, dysarthria, left arm and left leg Severity: moderate Relieving factors: none Associated symptoms: Reports chest pain and headache(s); Deny nausea, syncope or vomiting Related Data Home Medications Medication Instructions Recorded Confirmed ibuprofen 200 mg tablet 200 mg PO Q6H PRN 05/17/23 05/29/24 amitriptyline 25 mg tablet 25 mg PO DAILY 01/11/24 05/29/24 aspirin 81 mg tablet,delayed 81 mg PO DAILY 01/11/24 05/29/24 release (Adult Aspirin Regimen) Previous Rx's Medication Instructions Recorded lisinopril 5 mg tablet 5 mg PO DAILY #30 tabs 09/08/23 cyclobenzaprine 10 mg tablet 10 mg PO TID PRN muscle spasm #20 11/21/23 tabs naproxen 500 mg tablet 500 mg PO bid #30 tabs 11/21/23 gabapentin 300 mg capsule 300 mg PO BEDTIME #30 caps 01/02/24 DME: Walker #1 ea 01/11/24 lidocaine 5 % topical patch 1 patch topical DAILY #90 ea 01/11/24 topiramate 50 mg tablet 50 mg PO BID #60 tabs 01/11/24 hydroxyzine HCl 25 mg tablet 25 mg PO BID PRN anxiety 30 days 03/16/24 #60 tabs nitroglycerin 0.4 mg sublingual 0.4 mg sublingual Q5M PRN chest 04/22/24 tablet pain #20 tabs albuterol sulfate 2.5 mg/3 mL 2.5 mg (3 mL) inhalation Q4H PRN 05/08/24 (0.083 %) solution for nebulization shortness of breath or wheezing #180 mL benzonatate 100 mg capsule 100 mg PO TID PRN cough #60 caps 05/08/24 dulaglutide 0.75 mg/0.5 mL 0.75 mg (0.5 mL) SUBCUT Q7D #2 mL 05/14/24 subcutaneous pen injector ([facility]) levofloxacin 750 mg tablet 750 mg PO DAILY #7 tabs 05/22/24 prednisone 20 mg tablet 20 mg PO DAILY #7 tabs 05/22/24 atorvastatin 40 mg tablet 40 mg PO DAILY #30 tabs 05/29/24 clopidogrel 75 mg tablet (Plavix) 75 mg PO DAILY #21 tabs 05/29/24 Allergies Allergy/AdvReac Type Severity Reaction Status Date / Time erythromycin base Allergy unknown Verified 05/29/24 16:01 rosalie Allergy unknown Verified 05/29/24 16:01 papaya Allergy unknown Verified 05/29/24 16:01 watermelon Allergy unknown Verified 05/29/24 16:01 bee venom protein (honey bee) AdvReac Severe ALGY-Rash Verified 05/29/24 16:01 Review of Systems 2 Const: Denies: fever(s) Eyes: Denies: change in vision ENMT: Denies: odynophagia, nasal discharge or nasal congestion Card: Reports: chest pain; Denies: palpitations, irregular heart rhythm, syncope or pre-syncope Resp: Denies: productive cough or non-productive cough GI: Denies: nausea, vomiting or diarrhea Musc: Denies: neck pain, back pain, extremity pain or extremity swelling Neuro: Reports: headache(s), weakness in extremities, Slurred speech present and difficulty communicating thoughts Alexandre/Lymph: Denies: easy bruising or easy bleeding PFSH ED 2 PFSH: Medical History COPD (chronic obstructive pulmonary disease) Hiatal hernia with gastroesophageal reflux History of NH (myocardial infarction) Diabetes Smoking Social History Smoking and tobacco/nicotine status: former use of tobacco/nicotine Alcohol intake: never Substance/Drug Use: former Female Reproductive History: Spontaneous abortions: No Date of menopause: 0 03/01/18 NIH stroke score 2 NIHSS: Level Of Consciousness - 1a: 0 Level Of Consciousness Questions - 1b: Both Correct Level Of Consciousness Commands - 1c: Both Correct Best Gaze - 2: Normal Visual [place] - 3: No Visual Loss Facial Palsy - 4: N ormal Motor Arm Right - 5: No Drift Motor Arm Left - 5: Drift Motor Leg Right - 6: No Drift Motor Leg Left - 6: Effort Against [place] Limb Ataxia - 7: Absent Sensory - 8: Normal Best Language - 9: No Aphasia Dysarthia - 10: Severe Dysarthia Extinction And Inattention - 11: 0 Score: Total Score: 5 Physical Exam 2 Narrative: EXAM NARRATIVE: She is anxious and tearful but makes good eye contact. She has some difficulty communicating due to her dysarthria Const: COMMON NORMALS: alert GENERAL APPEARANCE: anxious NUTRITIONAL APPEARANCE: overweight ORIENTATION/CONSCIOUSNESS: Yes awake, Yes oriented to person and Yes oriented to place HENMT: COMMON NORMALS: Normal nasal mucous membranes and turbinates present, moist oral mucous membranes and oropharynx normal FACE & SINUS: normal facial exam and face symmetric NOSE: Normal nasal mucous membranes and turbinates present Eye: COMMON NORMALS: Equal, round and reactive pupils present, EOMs intact bilaterally and conjunctivae normal CONJUNCTIVA: Yes conjunctivae normal P UPIL: Yes Equal, round and reactive pupils present Neck/C-Spine: COMMON NORMALS: full ROM, no JVD and No carotid bruits Chest: COMMONS NORMALS: normal inspection of the chest Resp: COMMON NORMALS: normal respiratory effort, No retractions, No use of accessory muscles and clear to auscultation bilaterally AUSCULTATION: clear to auscultation bilaterally Cardio: COMMON NORMALS: no JVD, regular rate, regular rhythm, No murmurs present (Cardio) and Peripheral pulses 2+ throughout RATE: regular rate R HYTHM: regular rhythm PERIPHERAL PULSES: Peripheral pulses 2+ throughout GI: COMMON NORMALS: Normal to inspection, nondistended, normoactive bowel sounds present, Soft to palpation and non-tender PALPATION: Yes Soft to palpation : COMMON NORMALS: Yes no CVA tenderness BLADDER/KIDNEY EXAM: Yes no CVA tenderness Back/Pelvis: COMMON NORMALS: no CVA tenderness, thoracic and lumbar spine normal to inspection, no thoracic nor lumbar tenderness and thoraco-lumbar ROM normal Extremity: COMMON NORMALS: normal to inspection, capillary refill normal and no calf tenderness Neuro: SENSORIUM/ORIENTATION: Yes alert, Yes oriented to person and Yes oriented to place CRANIAL NERVES: Yes CN normal except as noted SPEECH: e xpressive aphasia GAIT: Yes Unable to assess gait MOTOR EXAM: Abnormal motor strength present (Left arm and left leg) Psych: COMMON NORMALS: mental status grossly normal Skin: COMMON NORMALS: no rashes or lesions noted and turgor normal GENERAL SKIN EXAM: no rashes or lesions noted and turgor normal Course 2 Reevaluation(s): Reevaluation #1: Patient is currently out of window of safe consideration for thrombolysis. This was reviewed with the patient who acknowledged understanding Time: 17:48 Reevaluation #2: Patient's speech is improved since initial intake. She is enunciating much more clearly. He also gives an additional history of migraine headaches and is currently being treated for that condition. Time: 18:59 Consultations: Consultation #1: Reviewed current presentation with Dr. Childers who called as part of the stroke protocol Time: 17:47 Vital Signs: Vital signs: Vital Signs Temperature 98.2 F 05/29/24 17:25 Pulse Rate 81 05/29/24 18:39 Respiratory Rate 18 05/29/24 17:25 Blood Pressure 162/88 05/29/24 18:39 Pulse Oximetry 100 05/29/24 18:39 Oxygen Delivery Me thod Room Air 05/29/24 18:39 MDM - Neuro Symptoms/Deficit Medical Decision Making This patient presented to the emergency department as noted in the history of present illness. She had a recent history of possible reversible ischemic deficits versus lacunar strokes and was hospitalized at [facility] approximately 4 months ago. Her current presentation symptoms began in excess of 6 hours prior to arrival to the emergency department precluding her from any consideration for thrombolytic therapy despite her initial NIH score of 5. Her workup included a CT which was unremarkable for any evidence of intracranial hemorrhage midline shift mass effect etc. followed by a CTA of the head and neck which did not reveal any evidence of LVO or other critical vascular occlusions. She actually had clinical improvement in her status throughout her emergency department stay returning back to her baseline with no focal motor deficits and/or speech deficits. She does have a history of migraines and certainly this raises the potential issue of a complex migraine in her current presentation. Strict neurology was consulted at her initial presentation and that can consultation continued subsequently during her emergency department stay. It was felt that it would be beneficial to her and giving her the benefit of as much risk reduction as possible to continue on dual plate antiplatelet therapy for 3 weeks consistent with usual care. She is making efforts to reduce her tobacco intake and is down to approximately 5 cigarettes a day. It should be also noted that she is positive for methamphetamine on her urine drug screen and that certainly a contributing factor to her stroke risk. She has not displayed any signs of arrhythmia during her stay in the emergency department which would be an additional stroke risk factor. Will also place her on a statin. He is currently taking antibiotics and her urine still shows signs of infection however she is afebrile without any leukocytosis or other signs of significant infection so it is recommended she continue her current antibiotic regimen and follow-up with her regular clinician. This was all discussed with both she and her partner who voiced understanding. She is stable at this time and her desires to be discharged from the emergency department and given that she is back at her baseline and we are providing risk reduction in the emergency department with additional admonishment to continue her lifestyle changes it is reasonable to be discharged at this time with return precautions. She acknowledges her current risk factors and endeavors to continue to reduce those is much as possible and also agrees to return to the emergency department for any further concerns. Medical Records I reviewed the patient's medical records. Lab Data I reviewed the patient's lab results. 05/29/24 18:03 05/29/24 18:03 Radiology Impressions Chest X-Ray 05/29/24 17:38 IMPRESSION: No acute findings. Head CT 05/29/24 17:38 IMPRESSION: No acute intracranial abnormality. ASSESSMENT: ASPECTS (Karen Stroke Program Early CT Score) is 10. Head/Neck CTA 05/29/24 17:38 IMPRESSION: No large vessel stenosis or occlusion. IMPRESSION: No stenosis or occlusion. COMMENTS: Consistent with the [employer]'s Incidental Findings Committee white paper (J Am Harriett Radiol 2015): In patients aged 35 years and older with an incidental thyroid nodule equal to or greater than 1.[address], MRI or extrathyroidal US, further evaluation with dedicated thyroid US is recommended for patients with normal life expectancy and without comorbidities. For smaller nodules without suspicious features, no further evaluation or follow up is recommended. REFERENCES: NASCET CRITERIA. The degree of stenosis in the cervical segment of the internal carotid artery is based on NASCET criteria. Normal is no stenosis. Mild is less than 50% stenosis. Moderate is 50-69% stenosis. Severe is 70% to 99% stenosis. Total occlusion is no detectable patent lumen. Laboratory Results WBC 4.26 10^3/uL (3.29-11.43) 05/29/24 18:03 RBC 4.32 10^6/uL (3.85-5.65) 05/29/24 18:03 Hgb 12.20 g/dL (11.27-16.99) 05/29/24 18:03 Hct 36.6 % (36-47) 05/29/24 18:03 MCV 84.7 fl (85-98) L 05/29/24 18:03 MCH 28.2 pg (27-33) 05/29/24 18:03 MCHC 33.3 g/dL (30-55) 05/29/24 18:03 RDW 14.2 % (12.1-15.1) 05/29/24 18:03 Plt Count 109 10^3/cmm (157-399) L 05/29/24 18:03 MPV 9.9 fL (7.4-10.4) 05/29/24 18:03 Neut % (Auto) 58.7 % 05/29/24 18:03 Lymph % (Auto) 32.6 % 05/29/24 18:03 [place] % (Auto) 6.8 % 05/29/24 18:03 Eos % (Auto) 1.2 % 05/29/24 18:03 Baso % (Auto) 0.2 % 05/29/24 18:03 Neut # (Auto) 2.50 10^3/uL (1.8-7.7) 05/29/24 18:03 Lymph # (Auto) 1.4 10^3/uL (0.8-4.8) 05/29/24 18:03 [place] # (Auto) 0.3 10^3/uL (0.2-0.9) 05/29/24 18:03 Eos # (Auto) 0.1 10^3/uL (0.0-0.8) 05/29/24 18:03 Baso # (Auto) 0.0 10^3/uL (0.0-0.1) 05/29/24 18:03 Nucleated RBC % (auto) 0 % 05/29/24 18:03 Nucleated RBCs # 0.0 /100WBC 05/29/24 18:03 PT 14.80 SECONDS (12.1-14.9) 05/29/24 18:03 INR 1.12 (0.8-1.2) 05/29/24 18:03 APTT 28.0 SECONDS (23.9-36.7) 05/29/24 18:03 Sodium 132 mmol/L (136-145) L 05/29/24 18:03 Potassium 4.2 mmol/L (3.5-5.1) 05/29/24 18:03 Chloride 98 mmol/L (98-107) 05/29/24 18:03 Carbon Dioxide 25 mmol/L (22-29) 05/29/24 18:03 Anion Gap 13.2 (5-19) 05/29/24 18:03 BUN 13 mg/dL (8-23) 05/29/24 18:03 Creatinine 0.5 mg/dL (0.5-0.9) 05/29/24 18:03 GFR Calculation 125.9 mL/min (90-130) 05/29/24 18:03 Glucose 282 mg/dL (65-115) H 05/29/24 18:03 POC Glucose 299 mg/dL (70-110) H 05/29/24 18:43 Calculated Osmolality 284 mOsm/kg (285-295) L 05/29/24 18:03 Calcium 9.0 mg/dL (8.5-10.5) 05/29/24 18:03 Total Bilirubin 0.5 mg/dL (0.15-1.2) 05/29/24 18:03 AST 14 U/L (0-32) 05/29/24 18:03 ALT 16 U/L (0-33) 05/29/24 18:03 Alkaline Phosphatase 107 U/L (35-105) H 05/29/24 18:03 Total Protein 7.4 g/dL (6.6-8.7) 05/29/24 18:03 Albumin 3.6 g/dL (3.5-5.2) 05/29/24 18:03 Globulin 3.8 g/dL (1.3-4.6) 05/29/24 18:03 Urine Color Yellow (Yellow) 05/29/24 18:44 Urine Appearance Clear (CLEAR) 05/29/24 18:44 Urine pH 7.0 (5-7) 05/29/24 18:44 Ur Specific [place] 1.064 (1.005-1.030) H 05/29/24 18:44 Urine Protein Trace (Negative) A 05/29/24 18:44 Urine Glucose (UA) 3+ (Normal) H 05/29/24 18:44 Urine Ketones Negative (Negative) 05/29/24 18:44 Urine Blood Negative (Negative) 05/29/24 18:44 Urine Nitrate Negative (Negative) 05/29/24 18:44 Urine Bilirubin Negative (Negative) 05/29/24 18:44 Urine Urobilinogen 2.0 mg/dL (Negative) H 05/29/24 18:44 Ur Leukocyte Esterase 1+ (Negative) A 05/29/24 18:44 Urine RBC 0-2 /hpf (0-2) 05/29/24 18:44 Urine WBC 21-50 /hpf (0-5) H 05/29/24 18:44 Ur Squamous Epith Cells 0-5 /hpf (0-5) 05/29/24 18:44 Amorphous Sediment Not Reportable 05/29/24 18:44 Urine Bacteria None seen /hpf (NONE) 05/29/24 18:44 Hyaline Casts 3.30 /lpf 05/29/24 18:44 Urine Opiates Screen Negative ng/mL (Negative) 05/29/24 18:44 Ur Barbiturates Screen Negative ng/mL (Negative) 05/29/24 18:44 Ur Phencyclidine Scrn Negative ng/mL (Negative) 05/29/24 18:44 Ur Amphetamines Screen Positive ng/mL (Negative) H 05/29/24 18:44 U Benzodiazepines Scrn Negative ng/mL (Negative) 05/29/24 18:44 Urine Cocaine Screen Negative ng/mL (Negative) 05/29/24 18:44 U Marijuana (THC) Screen Negative ng/mL (Negative) 05/29/24 18:44 All radiology interpretation(s) finalized by discharge Discharge Plan Discharge Patient Disposition: Home Clinical Impression: Acute reversible ischemic neurologic deficit, History of migraine headaches, Tobacco use disorder Condition: Stable Prescriptions: New atorvastatin 40 mg tablet 40 mg PO DAILY Qty: 30 1RF clopidogrel [Plavix] 75 mg tablet 75 mg PO DAILY Qty: 21 0RF No Action ibuprofen 200 mg tablet 200 mg PO Q6H PRN lisinopril 5 mg tablet 5 mg PO DAILY Qty: 30 2RF amitriptyline 25 mg tablet 25 mg PO DAILY aspirin [Adult Aspirin Regimen] 81 mg tablet,delayed release (DR/EC) 81 mg PO DAILY (DME) DME: Walker Unit See Rx Instructions .Route Qty: 1 0RF Rx Instructions: As directed topiramate 50 mg tablet 50 mg PO BID Qty: 60 3RF lidocaine 5 % adhesive patch,medicated 1 patch topical DAILY Qty: 90 2RF Rx Instructions: leave on most painful area for up to 12 hrs levofloxacin 750 mg tablet 750 mg PO DAILY Qty: 7 0RF prednisone 20 mg tablet 20 mg PO DAILY Qty: 7 0RF cyclobenzaprine 10 mg tablet 10 mg PO TID PRN (Reason: muscle spasm) Qty: 20 0RF naproxen 500 mg tablet 500 mg PO bid Qty: 30 0RF albuterol sulfate 2.5 mg /3 mL (0.083 %) solution for nebulization 2.5 mg inhalation Q4H PRN (Reason: shortness of breath or wheezing) Qty: 180 11RF benzonatate 100 mg capsule 100 mg PO TID PRN (Reason: cough) Qty: 60 0RF gabapentin 300 mg capsule 300 mg PO BEDTIME Qty: 30 3RF hydroxyzine HCl 25 mg tablet 25 mg PO BID PRN (Reason: anxiety) 30 Days Qty: 60 1RF nitroglycerin 0.4 mg tablet, sublingual 0.4 mg sublingual Q5M PRN (Reason: chest pain) Qty: 20 0RF Rx Instructions: do not exceed 3 doses per episode Trulicity 0.75 mg/0.5 mL pen injector 0.75 mg SUBCUT Q7D Qty: 2 0RF Rx Instructions: Will need appointment for more refills. Discharge Orders: Discharge ED (Routine); Ordered 05/29/24 Ordered By: Olu Sinclair Referrals: Ariella Nascimento FNP [Primary Care Provider] - 1 week Discharge Diet: Low Salt and Low Cholesterol Discharge Activity: Increase activity as tolerated Patient Instructions: Opioid Safety, Pain Management Activity Restrictions/Additional Instructions: As we discussed your evaluation in the emergency department not reveal any evidence of blockage of the arteries that required any additional intervention at this time. It is important that you continue your efforts and completely stop smoking. It is also important to take the 2 new medications that were prescribed for you. 1 is to keep your cholesterol as low as possible to help reduce your stroke risk and the second is taking any other blood thinner for 3 weeks to help reduce your likelihood of a stroke occurring. It is also important avoid any other substances that can be a contributing factor to stroke or migraine headaches. These include any nonprescribed medications. You should follow-up with your doctor in 1 week to reevaluate your therapy. If it anytime you have any new or worsening or other concerning symptoms return to this emergency department immediately. Coding Level of Care Code ED Hand Candle Molder for Oksana Buckley
--- NOTE | 2024-05-29 17:57 | ECG_ITS ---
[employer] Test Date: 2024-05-29 Pat Name: Coni Lovett Department: Room: Gender: Female Senior Caregiver: : 1965 Requested By: Olu Sinclair Order Number: [id number] Lisa MD: SHEREEN MCNALLY Measurements Intervals [place] Rate: 82 P: 37 OH: 146 QRS: 36 QRSD: 80 T: 47 QT: 357 QTc: 417 Interpretive Statements SINUS RHYTHM LOW QRS VOLTAGE IN PRECORDIAL LEADS [QRS DEFLECTION < 1.0 mV IN CHEST LEADS] Compared to ECG 04/24/2022 13:20:10 Low QRS voltage now present Electronically Signed On 05-30-2024 17:26:24 PROJECT MANAGEMENT INSTRUCTOR by SHEREEN MCNALLY [email or web address]
[2024-05-29 18:09] LABS: Basophils % 0.2 %; Eosinophils # 0.1 10^3/uL (0.0-0.8); Eosinophils % 1.2 %; Hematocrit 36.6 % (36-47); Lymphocytes # 1.4 10^3/uL (0.8-4.8); Lymphocytes % 32.6 %; Mean Corpuscular HGB Conc 33.3 g/dL (30-55); Mean Corpuscular Hemoglobin 28.2 pg (27-33); Mean Corpuscular Volume 84.7 fl (85-98); Mean Platelet Volume 9.9 fL (7.4-10.4); Monocytes # 0.3 10^3/uL (0.2-0.9); Monocytes % 6.8 %; Neutrophils % 58.7 %; Nucleated Red Blood Cells % 0 %; Platelet Count 109 10^3/cmm (157-399); Red Blood Count 4.32 10^6/uL (3.85-5.65); Red Cell Distribution Width 14.2 % (12.1-15.1); White Blood Count 4.26 10^3/uL (3.29-11.43)
[2024-05-29 18:22] LABS: INR 1.12 (0.8-1.2)
[2024-05-29 18:30] LABS: Alanine Aminotransferase 16 U/L (0-33); Albumin Level 3.6 g/dL (3.5-5.2); Alkaline Phosphatase 107 U/L (35-105); Anion Gap 13.2 (5-19); Aspartate Amino Transferase 14 U/L (0-32); Blood Urea Nitrogen 13 mg/dL (8-23); Carbon Dioxide 25 mmol/L (22-29); Chloride 98 mmol/L (98-107); Creatinine Clr Calc Pharmacy 125.0528; Globulin 3.8 g/dL (1.3-4.6); Glomerular Filtration Rate 125.9 mL/min (90-130); Glucose 282 mg/dL (65-115); Osmolality Calculated 284 mOsm/kg (285-295); Potassium 4.2 mmol/L (3.5-5.1); Sodium 132 mmol/L (136-145); Total Bilirubin 0.5 mg/dL (0.15-1.2); Total Protein 7.4 g/dL (6.6-8.7)
[2024-05-29 18:46] LABS: Glucose Point of Care 299 mg/dL (70-110)
[2024-05-29 18:54] LABS: Bilirubin Urine Negative (Negative); Blood Urine Negative (Negative); Glucose Urine UA 3+ (Normal); Ketones Urine Negative (Negative); Leukocyte Esterase Urine 1+ (Negative); Nitrate Urine Negative (Negative); Protein Urine Trace (Negative); Urine Appearance Clear (CLEAR); Urine Color Yellow (Yellow)
[2024-05-29 18:58] LABS: Add Urine Microscopic? YES; Bacteria Urine None Seen /hpf; RBC Urine 0-2 /hpf (0-2); Squamous Epithelial Cell Urine 0-5 /hpf (0-5); WBC Urine 21-50 /hpf (0-5)
[2024-05-29 18:59] LABS: Specific Gravity, Urine 1.064 (1.005-1.030)
[2024-05-29 19:00] LABS: Add Urine Culture? Yes
[2024-05-29 19:02] LABS: Amphetamines Screen Urine Positive (Negative); Barbiturates Screen Urine Negative (Negative); Benzodiazepines Screen Urine Negative (Negative); Cocaine Screen Urine Negative (Negative); Opiate Screen Urine Negative (Negative); PCP Screen Urine Negative (Negative); THC Screen Urine Negative (Negative)
[2024-05-29] MEDS: metoclopramide 5 mg/mL SDV 2 mL 10 MG IVP (20:02)
== END 2024-05-29 20:35 | disposition home or self-care (01) ==
PROVIDERS: Emergency Provider Emergency Medicine; PCP Nurse Practitioner
DX: I63.89 Other cerebral infarction (principal); Z87.891 Personal history of nicotine dependence; J44.9 Chronic obstructive pulmonary disease, unspecified; E11.9 Type 2 diabetes mellitus without complications; I25.2 Old myocardial infarction; Z79.82 Long term (current) use of aspirin; Z79.85 Long-term (current) use of injectable non-insulin antidiabetic drugs
CPT/HCPCS: 36416; 70450; 70496; 70498; 71045; 80053; 80306; 81001; 82962; 85025; 85610; 85730; 87086; 93005; 96374; 99285; J2765; Q9967

== ENCOUNTER → 2024-06-14 13:50 | Outpatient (BNVA) | payer MEDICARE, MEDICAID, SELFPAY | PROVIDERS: PCP Nurse Practitioner; Visit Provider Nurse Practitioner | DX: E11.65 Type 2 diabetes mellitus with hyperglycemia (principal) | CPT/HCPCS: 83036 ==

== ENCOUNTER → 2024-10-09 09:33 | Outpatient (BNVA) | payer MEDICARE, SELFPAY | PROVIDERS: PCP Nurse Practitioner; Visit Provider Nurse Practitioner | DX: T14.8XXA Other injury of unspecified body region, initial encounter (principal); W25.XXXA Contact with sharp glass, initial encounter; M85.871 Other specified disorders of bone density and structure, right ankle and foot; M77.31 Calcaneal spur, right foot | CPT/HCPCS: 73630 ==

== ENCOUNTER → 2024-12-11 15:03 | Outpatient (BNVA) | payer MEDICARE, SELFPAY | PROVIDERS: PCP Nurse Practitioner; Visit Provider Nurse Practitioner | DX: E11.65 Type 2 diabetes mellitus with hyperglycemia (principal) | CPT/HCPCS: 80053; 83036; 85025 ==